=== PATIENT | male | born 1960 | race Caucasian/White ===

== ENCOUNTER 2016-08-27 13:39 | Emergency (ER) | payer OTHER ==
[2016-08-27 13:44] VITALS: BP 159/100; PULSE 84; TEMP 98; BMI 41.3
[2016-08-27] MEDS ORDERED: KETOROLAC TROMETHAMINE 60 MG/2 ML VIAL IM ONE (14:01)
[2016-08-27] MEDS ORDERED: KETOROLAC TROMETHAMINE 60 MG/2 ML VIAL ONE (14:04)
--- NOTE | 2016-08-27 14:05 | PDOC ---
[id number] FALL, LT LEG PAIN Time Seen by Provider: 08/27/16 13:46 History Source: Patient Exam Limitations: No Limitations - History of Present Illness Initial Comments: 08/27/16 14:03 56 yr male states at work yesterday he slipped and fell injuring right hip, left knee and ankle. No head trauma or LOC. 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 Occurred: reports: yesterday Severity: reports: mild Pain Location: reports: lower extremity (left knee, ankle ), pelvis (right) Method of Injury: Yes: fall Loss of Consciousness: no loss of consciousness Past History - Past Medical History Allergies/Adverse Reactions: Allergies Allergy/AdvReac Type Severity Reaction Status Date / Time No Known Allergies Allergy Verified 08/27/16 13:44 Home Medications: Ambulatory Orders Aspirin [ASA -] 81 mg PO DAILY 04/03/13 Colchicine [Colcrys] 0.6 mg PO DAILY 04/03/13 Metoprolol Succinate [Toprol XL -] 25 mg PO DAILY 04/03/13 Amlodipine Besylate [Norvasc -] 10 mg PO DAILY #30 tablet 03/10/16 Aspirin Coated [Ecotrin -] 81 mg PO DAILY tablet.ec 03/10/16 Atorvastatin Ca [Lipitor] 40 mg PO HS #30 tablet 03/10/16 Colchicine [Colcrys -] 0.6 mg PO DAILY tablet 03/10/16 Losartan Potassium [Cozaar -] 50 mg PO DAILY #30 tablet 03/10/16 Metoprolol Succinate [Toprol XL -] 25 mg PO DAILY #30 tab.sr.24h 03/10/16 Cardiac Disorders: Yes (LA January) GI Disorders: Yes (DIVERTICULITIS,HERNIA) Disorders: Yes (KIDNEY STONES) HTN: Yes - Surgical History Abdominal Surgery: Yes (COLON resection) Cardiac Surgery: Yes (triple bypass in January) - Psycho/Social/Smoking Cessation Hx Suicidal Ideation: No Smoking Status: Yes Smoking History: Never smoked Have you smoked in the past 12 months: No Number of Cigarettes Smoked Daily: 20 Information on smoking cessation initiated: No 'Breaking Loose' booklet given: 01/19/13 Hx Alcohol Use: No Drug/Substance Use Hx: No Substance Use Type: None Hx Substance Use Treatment: No Trauma Specific PMHX - Complaint Specific PMHX Arthritis: No Back Injury: No Neck Injury: No Hx Sacro Iliac Joint Dysfunction: No Review of Systems - Review of Systems Able to Perform ROS?: Yes Is the patient limited Mongolian proficient: No Constitutional: No: Symptoms Reported HEENTM: No: Symptoms Reported Respiratory: No: Symptoms reported Cardiac (ROS): No: Symptoms Reported ABD/GI: No: Symptoms Reported : No: Symptoms Reported Musculoskeletal: Yes: Symptoms Reported, See HPI *Physical Exam - Vital Signs Last Vital Signs Temp Pulse Resp BP Pulse Ox 98 F 84 18 159/100 97 08/27/16 13:42 08/27/16 13:42 08/27/16 13:42 08/27/16 13:42 08/27/16 13:42 - Physical Exam General Appearance: Yes: Nourished, Appropriately Dressed HEENT: positive: EOMI, TOMAS, Normal ENT Inspection, TMs Normal, Pharynx Normal Neck: positive: Supple. 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, Fully Oriented, Alert, Normal Mood/ Affect, Normal Response, Motor Strength 5/5 ED Treatment Course - RADIOLOGY Radiology Studies Ordered: Category Date Time Status ANKLE & FOOT-LEFT* [RAD] Stat Radiology 08/27/16 14:02 Ordered HIP & PELVIS-RIGHT [RAD] Stat Radiology 08/27/16 14:02 Ordered KNEE 3 POS-LEFT [RAD] Stat Radiology 08/27/16 14:02 Ordered Medical Decision Making - Medical Decision Making 08/27/16 14:05 cc: slip and fall yesterday left ankle and knee pain, right hip pt ambulatory denies dizzyness no headtrauma noted will xray to r/o fracture toradol for pain 08/27/16 14:50 xrays resulted and copies given to patient. knee immobilizer placed on left knee pt asked all questions prior to discharge. *DC/Admit/Observation/Transfer Diagnosis at time of Disposition: Left knee sprain Qualifiers: Encounter type: initial encounter Involved ligament of knee: other ligament Qualified Code(s): S83.8X2A - Sprain of other specified parts of left knee, initial encounter - Discharge Dispostion Disposition: HOME Condition at time of disposition: Good - Referrals Referrals: Artur Sahni MD [Staff Physician] - - Patient Instructions Additional Instructions: follow with your orthopedist or for follow up elevate your knee and apply ice every 2hrs for 15-20 minutes while awake for the next 2 days take advil for pain as needed (over the counter ibuprofen, motrin or advil) do not take if you take the indomethacin return to ER for any worsening symptoms
== END 2016-08-27 14:42 | disposition home or self-care (01) ==
LOC: JERFT 13:39
PROC: 2W3MX1Z Immobilization of Left Lower Extremity using Splint (ICD-10-PCS; principal; 2016-08-27)
DX: S83.8X2A Sprain of other specified parts of left knee, initial encounter (principal); W01.0XXA Fall on same level from slipping, tripping and stumbling without subsequent striking against object, initial encounter; Y93.89 Activity, other specified; Y92.89 Other specified places as the place of occurrence of the external cause; Y99.0 Civilian activity done for income or pay
CPT/HCPCS: 73523-TC; 73562-TC-LT; 73610-TC-LT; 73630-TC-LT; 99281-25

== ENCOUNTER 2017-10-19 07:11 | Inpatient (IN) | payer OTHER ==
[2017-10-04 12:01] VITALS: BMI 39.3
[2017-10-19] MEDS ORDERED: CELECOXIB 200 MG CAPSULE PO ONE (07:20)
[2017-10-19] MEDS ORDERED: GABAPENTIN 300 MG CAPSULE (FP) PO ONE (07:20)
[2017-10-19] MEDS ORDERED: TRANEXAMIC ACID 1000 MG/10 ML VIAL IVPUSH ONE (07:20)
[2017-10-19] MEDS ORDERED: CEFAZOLIN 2 GM/D5W 2 GM/50 ML ML IVPB ONE (07:20)
[2017-10-19] MEDS ORDERED: oxyCODONE HCL 10 MG SUSTAINED ACTING TABLET PO ONE (07:20)
--- NOTE | 2017-10-19 07:50 | HP ---
[facility] - Chief Complaint Chief Complaint: left knee pain - Past Medical History Allergies/Adverse Reactions: Allergies Allergy/AdvReac Type Severity Reaction Status Date / Time No Known Drug Allergies Allergy Verified 10/04/17 11:55 Cardiovascular: Yes: CAD, CHF, HTN, Hyperlipdemia, TN. No: Deep Vein Thrombosis Gastrointestinal: Yes: Constipation, Diverticulosis Renal/: Yes: Renal Inusuff, Renal Calculi Musculoskeletal: Yes: Other (Gout arthropathy) Rheumatology: Yes: Gout - Current Medications Current Medications: Home Medications Medication Instructions Recorded Aspirin [ASA -] 81 mg PO HS 04/03/13 Colchicine [Colcrys] 0.6 mg PO HS 04/03/13 Atorvastatin Ca [Lipitor] 40 mg PO HS #30 tablet 03/10/16 Febuxostat [Uloric -] 80 mg PO HS 08/17/17 Losartan Potassium [Cozaar -] 50 mg PO HS 08/17/17 Metoprolol Succinate [Toprol XL -] 25 mg PO HS 08/17/17 Ezetimibe [Zetia -] 10 mg PO HS 10/05/17 Hydralazine HCl 25 mg PO HS 10/05/17 Satellite Physical Exam - Physical Examination General Appearance: Well Nourished, Well Developed, Alert & Oriented x3 ENT: Clear Lung: Normal air movement Heart: Regular rate & rhythm Extremities: Other (left knee- +swelling, + ttp ,decr rom, nvi xrays show grade4 tricompartmental djd) Neurological: Intact, Alert, Oriented Satellite Impression/Plan - Impression/Plan Impression: left knee djd Operative Procedure: left leatha tkr Date to be Performed: 10/19/17
[2017-10-19] MEDS ORDERED: oxyCODONE HCL 10 MG SUSTAINED ACTING TABLET ONE (07:51)
[2017-10-19] MEDS ORDERED: GABAPENTIN 300 MG CAPSULE (FP) ONE (07:52)
[2017-10-19] MEDS ORDERED: CELECOXIB 200 MG CAPSULE ONE (07:52)
[2017-10-19] MEDS ORDERED: MIDAZOLAM HCL 2 MG/2 ML SINGLE DOSE VIAL ONE ×2 (09:43→10:24)
[2017-10-19] MEDS ORDERED: ROPIVACAINE HCL 0.5% 30ML VIAL ONE (09:43)
[2017-10-19] MEDS ORDERED: BUPIVACAINE LIPOSOME/PF (EXPAREL) 266 MG/20 ML VIAL ONE (09:46)
[2017-10-19] MEDS ORDERED: PROPOFOL 20 ML ONE ×3 (10:24)
[2017-10-19] MEDS ORDERED: TRANEXAMIC ACID 1000 MG/10 ML VIAL ONE ×2 (10:29→12:05)
[2017-10-19] MEDS ORDERED: ceFAZolin SODIUM 1 GM VIAL ONE (10:31)
[2017-10-19] MEDS ORDERED: BUPIVACAINE 0.75% IN DEXTROSE/PF 2ML AMPULE NR ONE (10:51)
[2017-10-19] MEDS ORDERED: ePHEDrine SULFATE 50 MG/1 ML AMPULE ONE (11:38)
[2017-10-19] MEDS ORDERED: VANCOMYCIN 1,000 MG VIAL (RESTRICTED TO ID ONLY) IVPB ONE (12:09)
[2017-10-19] MEDS ORDERED: ONDANSETRON 4 MG/2 ML VIAL IVPUSH PRN ×2 (12:36→12:56)
[2017-10-19] MEDS ORDERED: MAG HYDROX/AL HYDROX/SIMETH 30 ML UNIT-DOSE CUP PO PRN (12:36)
[2017-10-19] MEDS ORDERED: MAGNESIUM HYDROX 2400MG/30ML ORAL SUSPENSION 30 ML CUP PO PRN (12:36)
--- NOTE | 2017-10-19 12:39 | OP ---
Operative Note - Note: Operative Date: 10/19/17 (carrie) Pre-Operative Diagnosis: left knee djd Operation: left leatha tkr Post-Operative Diagnosis: Same as Pre-op Surgeon: Osmany Pendleton Emulsion Operator: Fred Childs Anesthesiologist/PECAN HULLER: Timothy Matthew Anesthesia: Spinal, Local Specimens Removed: bone fragments, screw Estimated Blood Loss (mls): 200 Operative Report Dictated: Yes
[2017-10-19] MEDS ORDERED: LACTATED RINGERS SOLUTION 1,000 ML IV SCH ×2 (12:45→13:00)
[2017-10-19] MEDS ORDERED: oxyCODONE HCL 5 MG TABLET PO PRN (12:56)
[2017-10-19] MEDS: ACETAMINOPHEN 325 MG TABLET (FP) PO SCH ×2 (15:07→21:27)
[2017-10-19] MEDS: oxyCODONE HCL 5 MG TABLET PO PRN ×2 (18:25→22:37)
[2017-10-19] MEDS: CEFAZOLIN 2 GM/D5W 2 GM/50 ML ML IVPB SCH (18:46)
[2017-10-19] MEDS ORDERED: PT OWN MED DRAWER 7, Y5N ONE (21:23)
[2017-10-19] MEDS: metoPROLOL SUCCINATE 25 MG TAB.SR.24H (FP) PO SCH (21:25)
[2017-10-19] MEDS: ATORVASTATIN CA 40 MG TABLET (FP) PO SCH (21:25)
[2017-10-19] MEDS: EZETIMIBE 10 MG TABLET (FP) PO SCH (21:25)
[2017-10-19] MEDS: hydrALAZINE HCL 25 MG TABLET (FP) PO SCH (21:25)
[2017-10-19] MEDS: LOSARTAN POTASSIUM 50 MG TABLET (FP) PO SCH (21:26)
[2017-10-19] MEDS: COLCHICINE 0.6 MG TABLET (FP) PO SCH (21:26)
[2017-10-19] MEDS: GABAPENTIN 300 MG CAPSULE (FP) PO SCH (21:27)
[2017-10-19] MEDS: SENNOSIDES/DOCUSATE COMBO (SENNA PLUS) TABLET (UD) PO SCH (21:28)
[2017-10-19] MEDS: FEBUXOSTAT 40 MG TAB PO SCH (22:34)
[2017-10-20] MEDS: CEFAZOLIN 2 GM/D5W 2 GM/50 ML ML IVPB SCH (03:00)
[2017-10-20] MEDS: ACETAMINOPHEN 325 MG TABLET (FP) PO SCH ×4 (05:55→21:38)
[2017-10-20 07:59] LABS: HEMATOCRIT 40.1 % (35.4-49); HEMOGLOBIN 13.2 GM/dl (11.7-16.9); MCH 28.4 pg (25.7-33.7); MEAN CELL VOLUME 85.8 fl (80-96); MEAN PLT VOLUME 9.7 fl (7.5-11.1); PLATELET COUNT 190 K/MM3 (134-434); RBC 4.67 M/mm3 (4.00-5.60); RDW 14.3 % (11.9-15.9); WHITE BLOOD COUNT 6.9 K/mm3 (4.0-10.8)
[2017-10-20] MEDS: ASPIRIN 325 MG TABLET PO SCH (08:04)
[2017-10-20] MEDS: oxyCODONE HCL 5 MG TABLET PO PRN ×3 (08:04→20:11)
[2017-10-20] MEDS: GABAPENTIN 300 MG CAPSULE (FP) PO SCH ×2 (09:30→21:40)
[2017-10-20] MEDS: MULTIVITAMINS (DAILY MVI) TABLET (FP) PO SCH (09:30)
[2017-10-20] MEDS: PANTOPRAZOLE 40 MG TABLET (FP) PO SCH (09:30)
[2017-10-20] MEDS: SENNOSIDES/DOCUSATE COMBO (SENNA PLUS) TABLET (UD) PO SCH ×2 (09:30→21:40)
--- NOTE | 2017-10-20 11:17 | OP ---
DATE OF OPERATION: 10/19/2017 PREOPERATIVE DIAGNOSIS: Degenerative joint disease, left knee. POSTOPERATIVE DIAGNOSIS: Degenerative joint disease, left knee. PROCEDURE: Left total knee replacement with robotic-assisted navigation (MAKOplasty). SURGICAL ATTENDING: Osmany Pendleton MD ORTHOPAEDIC GENERAL: MONICO Nieves ANESTHESIA: Regional and spinal. CLOSURE: A Triathlon knee system with a Press-Fit 4 femur, Press-Fit 5 tibia, an 11 PS polyethylene insert, a cemented 35 metallic-back patella, No. 1 Vicryl fascia, 0 and 2-0 subcuticular, and 3-0 Monocryl subcuticular with skin glue for skin. ESTIMATED BLOOD LOSS: Approximately 150 mL. COMPLICATIONS: None. CONDITION: Recovery in stable condition. DESCRIPTION OF OPERATIVE PROCEDURE: Patient was taken to the operating room on October 19, 2017. Spinal and regional anesthesia was administered by the anesthesiologist. IV Kefzol and TXA were administered prophylactically prior to the case. The left lower extremity was prepped and draped in the usual sterile fashion. Patient had previous surgery with a V-shaped incision over the anterior aspect of his knee. We used the central portion of that and extended it proximally and distally to perform the procedure. Hemostasis was achieved with Bovie cautery. Sharp dissection was carried down to the level of the extensor mechanism with sufficient flaps medially and laterally to perform the procedure. A medial parapatellar arthrotomy was then made. The patella was inverted, and the knee was flexed up to 90 degrees. Subperiosteal dissection was done on the anterior medial proximal tibia until the knee was able to be brought forward. This was facilitated by taking the remnants of the ACL and PCL, medial and lateral menisci. Checkpoints were malleted on both the femur and the tibia. Two parallel pins were placed from the medial femoral condyle in oblique fashion towards the lateral side. Two of these pins were fastened to the femoral navigation array through 2 small stab incisions up one handbreadth below the tibia. Two pins were inserted into the tibia, and again, these pins were fastened to the tibial array. The knee was then registered with the navigation device by getting the center of rotation of the hip, medial and lateral malleoli, and multiple points on both the femur and the tibia. Excellent registration was confirmed by "popping the bubbles." At this point, all osteophytes were removed. The knee was then tensioned in extension and 90 degrees of flexion to ascertain tightness and looseness. The virtual position of the components was then optimized to make equal gaps both medial and laterally. This was performed with the need to put in an 11-mm insert. The robot was then brought on the field and registered. The robot was then used to cut the bone on the femur and the tibia to the specifications of the virtual components. We tested gaps in both extension and 90 degrees of flexion by using the dog bones again which would facilitate an 11-mm insert. The box was then cut on the femur, and then, the trial components were placed both on the femur and the tibia with 11-mm insert. Range of motion in all was found good stability from full extension to full flexion throughout. The patella was osteotomized down to the appropriate level. The 35 lollipop was used to drill the lug holes in the patella. Trial reduction revealed excellent tracking of the patella throughout the range of motion. Trial components were removed. The keel was punched. The knee was post-antibiotic irrigated. The Press-Fit components in the femur and the tibia were malleted into place, achieving interdigitation. An 11-mm insert was clipped into place. The patella was cemented into place using 1 bag of antibiotic cement with pressurization. The knee was thoroughly irrigated with copious amounts of irrigation. The checkpoints and the pins were removed. Vancomycin powder was placed into the knee joint. When inserting the femur, the femoral screw from the previous ACL reconstruction was found and was excised. The tibial screw which was distal to the incision was left in situ. The medial parapatellar arthrotomy was then closed using No. 1 interrupted Vicryl suture. Range of motion of the knee post fixation revealed excellent tracking from full extension, full flexion, with no undue tension on the repair. The soft tissue was post-antibiotic irrigated and closed with 2-0 Vicryl and 3-0 Monocryl with subcuticular skin glue for skin, 4-0 undyed Vicryl for the distal tibial pin site. An Aquacel pressure dressing was applied. Patient awakened from anesthesia and transferred to Recovery in stable condition. No complications. Estimated blood loss approximately 100 to 150 mL. No tourniquet was used. OSMANY PENDLETON M.D. [id number]
[2017-10-20] MEDS: metoPROLOL SUCCINATE 25 MG TAB.SR.24H (FP) PO SCH (21:39)
[2017-10-20] MEDS: EZETIMIBE 10 MG TABLET (FP) PO SCH (21:39)
[2017-10-20] MEDS: hydrALAZINE HCL 25 MG TABLET (FP) PO SCH (21:39)
[2017-10-20] MEDS: COLCHICINE 0.6 MG TABLET (FP) PO SCH (21:39)
[2017-10-20] MEDS: ATORVASTATIN CA 40 MG TABLET (FP) PO SCH (21:40)
[2017-10-20] MEDS: FEBUXOSTAT 40 MG TAB PO SCH (21:40)
[2017-10-20] MEDS: LOSARTAN POTASSIUM 50 MG TABLET (FP) PO SCH (21:40)
[2017-10-21] MEDS: ACETAMINOPHEN 325 MG TABLET (FP) PO SCH ×3 (04:30→15:52)
[2017-10-21] MEDS: ASPIRIN 325 MG TABLET PO SCH (08:00)
[2017-10-21 08:40] LABS: HEMATOCRIT 36.7 % (35.4-49); HEMOGLOBIN 12.5 GM/dl (11.7-16.9); MCH 29.2 pg (25.7-33.7); MEAN CELL VOLUME 85.8 fl (80-96); MEAN PLT VOLUME 9.8 fl (7.5-11.1); PLATELET COUNT 171 K/MM3 (134-434); RBC 4.28 M/mm3 (4.00-5.60); RDW 14.5 % (11.9-15.9); WHITE BLOOD COUNT 8.3 K/mm3 (4.0-10.8)
[2017-10-21] MEDS: SENNOSIDES/DOCUSATE COMBO (SENNA PLUS) TABLET (UD) PO SCH (09:15)
[2017-10-21] MEDS: GABAPENTIN 300 MG CAPSULE (FP) PO SCH (09:15)
[2017-10-21] MEDS: PANTOPRAZOLE 40 MG TABLET (FP) PO SCH (09:16)
[2017-10-21] MEDS: oxyCODONE HCL 5 MG TABLET PO PRN ×2 (09:16→15:52)
[2017-10-21] MEDS: MULTIVITAMINS (DAILY MVI) TABLET (FP) PO SCH (09:16)
--- NOTE | 2017-10-21 10:24 | CONSULT ---
Consult - text type - Consultation Consultation Note: AVSS COMFORTABLE BANDAGES CLEAN AND DRY CALF SOFT AND NT NVI ROM 0-60 + STRAIGHT LEG RAISE ABILITY IMP: DOING WELL PLAN: OOB, PT, DC TODAY
[2017-10-21 15:54] VITALS: BP 103/61; PULSE 76; TEMP 98
--- NOTE | 2017-10-23 15:34 | PATH ---
Surgical Pathology Report Patient Name: OSMANY CALVIN Med. Rec. #: [id number] /Age/Gender: 1960 (Age: 57) / M Account: [id number] Location: [facility] MED-SURG Taken: 10/19/2017 Received: 10/19/2017 Reported: 10/23/2017 Physicians: Osmany Pendleton M.D. Specimen(s) Received A: LEFT KNEE BONES B: LEFT KNEE SCREW EXPLANT Clinical History Left knee osteoarthritis Final Diagnosis A. BONE AND SOFT TISSUE, LEFT KNEE, REPLACEMENT: DEGENERATIVE JOINT DISEASE. B. ORTHOPEDIC HARDWARE, LEFT KNEE, REMOVAL: METALLIC SCREW (GROSS ONLY). Electronically Signed Benedicto Mckeon M.D. Gross Description A. Received in formalin labeled "left knee bones," is a 10.0 x 9.5 x 2.0 cm aggregate of multiple irregular portions of bone and soft tissue. The tibial plateau measures 8.5 x 6.3 x 1.9 cm. There is a 4 cm in greatest dimension area of eburnation identified. The remaining articular surfaces are gomez-yellow and diffusely granular. The underlying trabecular bone is yellow and hard. Bill Of Lading Clerk sections are submitted in one cassette, following decalcification. B. Received in formalin labeled "left knee screw explant," is a 2.5 cm in length yellow metallic screw. No soft tissue is present. No sections are submitted, gross only. /10/22/2017 saudi/10/22/2017
== END 2017-10-21 17:00 | disposition home health service (06) | DRG 302 ==
LOC: FM/S 07:11
PROVIDERS: ADMIT Orthopaedic Surgery; ATTEND Orthopaedic Surgery
PROC: 8E0Y0CZ Robotic Assisted Procedure of Lower Extremity, Open Approach (ICD-10-PCS; 2017-10-19)
PROC: 0SRD0J9 Replacement of Left Knee Joint with Synthetic Substitute, Cemented, Open Approach (ICD-10-PCS; principal; 2017-10-19 10:45)
DX: M17.12 Unilateral primary osteoarthritis, left knee (principal); I25.10 Atherosclerotic heart disease of native coronary artery without angina pectoris; I11.0 Hypertensive heart disease with heart failure; I50.9 Heart failure, unspecified; E78.5 Hyperlipidemia, unspecified; M10.9 Gout, unspecified
CPT/HCPCS: 36415; 73560-TC-LT-FY; 85027; 88300-TC; 88304-TC; 88311-TC; 94010; 94760; 97116-GP; 97162-GP